=== PATIENT | male | born 1980 | race Two or more races ===

== ENCOUNTER → 2016-10-09 | Outpatient (CLI) | payer OTHER ==
--- NOTE | 2016-10-09 11:18 | FL ---
EXAMINATION TYPE: FL UGI air w small bowel DATE OF EXAM: 10/09/2016 COMPARISON: NONE HISTORY: Vomiting, rectal bleeding TECHNIQUE: A double contrast UGI study is performed with small bowel follow through. FINDINGS: [employer] Inspector image of the abdomen shows no gross abnormality. Patient vomited following initiation of the procedure The esophagus shows normal motility and emptying into the stomach. No evidence of hiatal hernia or s tricture noted. The stomach shows normal distensibility, peristalsis, and mucosal folds. No evidence of any mass or ulcer disease. No significant esophageal reflux was seen during real time performance of this study. The duodenal bulb and sweep are unremarkable. The small bowel study shows rapid transit to the colon in less than 30 minutes. There is normal muco sean fold pattern throughout the small bowel. There is no evidence of any stricture or filling defect noted. The terminal ileum is unremarkable. No fistula formation or fixation of bowel loops. IMPRESSION: Rapid transit through the small bowel. Patient vomited during the procedure.
== END | disposition home or self-care (01) ==
LOC: RADFLMAIN 09:01
PROVIDERS: ATTEND Family Medicine
DX: R11.10 Vomiting, unspecified (principal)
CPT/HCPCS: 74249

== ENCOUNTER 2018-01-06 12:21 | Day surgery (SDC) | payer OTHER ==
[2018-01-02 12:52] VITALS: BMI 25.1
[~2018-01-06 12:21] MED LIST: LACTATED RINGERS 1,000 ML IV SCH
[2018-01-06] MEDS ORDERED: LIDOCAINE 1% 20 ML VIAL (10MG/ML) FOR IV START INTRADERMA ONE (12:49)
[2018-01-06 12:53] VITALS: RESP 16; TEMP 98.3
[2018-01-06] MEDS ORDERED: LIDOCAINE 1% INJ 10MG/ML (20 ML MDV) ONE (13:01)
[2018-01-06] MEDS ORDERED: PROPOFOL 10 MG/ML 20 ML VIAL IV ONE (13:01)
[2018-01-06] MEDS ORDERED: fentaNYL (PF) 50 MCG/ML 2 ML AMP ONE (13:01)
--- NOTE | 2018-01-06 13:36 | P.PCN ---
Date of Procedure: 01/06/18 Procedure(s) Performed: Procedures: 1. Esophagogastroduodenoscopy and biopsy. 2. Total colonoscopy and biopsy of the colon and terminal ileum. Preoperative diagnosis: Nausea, vomiting and diarrhea. Postoperative diagnosis: 1. Small hiatal hernia and mild gastritis. 2. Normal colon isolated ulcerations in the terminal ileum. 3. Multiple biopsies obtained from the duodenum, antrum, esophagus, terminal ileum and random colon. Preparation: HalfLytely prep. Sedation: Was provided by anesthesia. Brief clinical history: The patient is a 37-year-old male who is scheduled for this evaluation because of chronic nausea, vomiting and diarrhea and finding of blood in his stools. There is family history of colitis in his father and Crohn 's disease in his mother. Procedure: With the patient on his left lateral decubitus position and after informed consent and adequate sedation, I passed the Olympus-GIF 160 video upper endoscope through the cricopharyngeus down the esophagus. GE junction was around 38 cm from the incisors and there was a 2-cm hiatal hernia but no obvious esophagitis or complicated reflux disease. The endoscope was then passed into the stomach which was insufflated with air and inspected in detail including the retroflex view in the cardia. There was some mottling, erythema and friability in the antrum but no ulcers or erosions. Pyloric channel did not show any ulcers. Duodenal bulb, post bulbar area and descending duodenum appeared normal. I obtained biopsies from the duodenum, antrum and esophagus then the endoscope was withdrawn and I proceeded with the colonoscopy. Perianal area did not show any fissures or fistulas. There were no masses felt on digital rectal examination. The Olympus CFQ 160L video colonoscope was then inserted in the rectum in the usual fashion and advanced to the cecum. I intubated the ileocecal valve and examined the terminal ileum. There were few isolated erosions and a superficial ulceration in the terminal ileum. The mucosa of the colon appeared healthy. No polyps or tumors were seen or any obvious diverticular disease or bleeding. I obtained biopsies from the terminal ileum and randomly from the colon then I retroflexed endoscope in the rectum before the endoscope was withdrawn. The patient tolerated the procedure well. Plan: The patient was reassured. Will await biopsy results. Further plans will be made based on his course and biopsy results. He will follow up with you as planned and I would like to see him in the office in follow-up to discuss the biopsy results and decide regarding possible treatment of ileitis. I will keep you updated on his progress.
[2018-01-06 14:00] VITALS: BP 131/71; PULSE 58
== END 2018-01-06 14:12 | disposition home or self-care (01) ==
LOC: ORWHC2ENDO 12:21
DX: K29.50 Unspecified chronic gastritis without bleeding (principal); K44.9 Diaphragmatic hernia without obstruction or gangrene; K63.3 Ulcer of intestine; K52.9 Noninfective gastroenteritis and colitis, unspecified; F41.9 Anxiety disorder, unspecified; M19.90 Unspecified osteoarthritis, unspecified site; F41.0 Panic disorder [episodic paroxysmal anxiety]; K21.9 Gastro-esophageal reflux disease without esophagitis; F17.200 Nicotine dependence, unspecified, uncomplicated; J45.909 Unspecified asthma, uncomplicated; Z79.899 Other long term (current) drug therapy; Z83.79 Family history of other diseases of the digestive system
CPT/HCPCS: 88305; 45380; 43239; J2001; J3010; J2704